=== PATIENT | male | born 1975 | race Caucasian/White ===

== ENCOUNTER → 2024-08-06 | Outpatient (CLI) | payer OTHER, SELFPAY ==
--- NOTE | 2024-08-06 12:55 | ECHOCS_ITS ---
Version 4 Reason For Study: SHORTNESS OF BREATH Procedure This was a 2D Doppler, Color Flow transthoracic echocardiogram. Contrast injection was performed. The study was technically difficult. Exam performed in department. Left Ventricle Normal LV size. Mild concentric left ventricular hypertrophy. Left ventricular systolic function is normal. The left ventricular ejection fraction is 60 %. Stage 1 diastolic dysfunction. No regional wall motion abnormalities noted. Right Ventricle Normal RV size. Normal systolic function. Atria Normal left atrium. Normal right atrium. Mitral Valve Normal mitral valve. Tricuspid Valve Normal tricuspid valve. Aortic Valve Bicuspid aortic valve. There is no aortic stenosis. Great Vessels Mildly dilated aortic root. The pulmonary artery is normal size. Pericardium/Pleural No pericardial effusion. Medication 22 gauge I.V. with prn adaptor inserted into right arm. Diluted definity 3ml given slow IV push to enhance endocardial definition. MMode/2D Measurements & Calculations LVIDd: 4.5 cm IVSd: 1.4 cm LVOT diam: 2.3 cm LVIDs: 2.5 cm LVPWd: 1.4 cm LVOT area: 4.3 cm2 RVDd: 3.9 cm FS: 45.2 % asc Aorta Diam: 3.8 cm LAV(MOD-bp): 29.2 ml LVAd ap4: 36.0 cm2 LAV(MOD-bp) Indexed: 13.3 ml/m2 LVLd ap4: 8.8 cm LAV(MOD-sp2): 29.5 ml EDV(MOD-sp4): 117.7 ml LAV(MOD-sp4): 27.1 ml EDV(sp4-el): 124.8 ml LVAs ap4: 19.6 cm2 LVLs ap4: 7.3 cm ESV(MOD-sp4): 44.3 ml ESV(sp4-el): 45.0 ml EF(MOD-sp4): 62.3 % EF(sp4-el): 64.0 % LVAd ap2: 32.8 cm2 SV(MOD-sp4): 73.4 ml SV(MOD-sp2): 58.5 ml LVLd ap2: 8.9 cm SI(MOD-sp4): 33.4 ml/m2 SI(MOD-sp2): 26.6 ml/m2 EDV(MOD-sp2): 99.1 ml EDV(sp2-el): 103.0 ml LVAs ap2: 19.9 cm2 LVLs ap2: 7.9 cm ESV(MOD-sp2): 40.7 ml ESV(sp2-el): 42.5 ml EF(MOD-sp2): 59.0 % SV(sp4-el): 79.8 ml Ao sinus diam: 4.[address] Junction: 3.6 cm LA dimension(2D): 3.4 cm LA A4 area: 13.6 cm2 RA A4 area: 10.7 cm2 TAPSE: 2.2 cm Time Measurements MV dec time: 0.18 sec Doppler Measurements & Calculations MV E max lawson: 68.4 cm/sec Lat Peak E' Lawson: 12.2 cm/sec Med Peak E' Lawson: 8.3 cm/sec MV A max lawson: 91.8 cm/sec E/E' lat: 5.6 E/E' med: 8.2 MV E/A: 0.75 MV dec slope: 385.7 cm/sec2 Ao V2 max: 122.2 cm/sec LV V1 max: 90.3 cm/sec Ao max P.0 mmHg LV V1 max P.3 mmHg Ao V2 mean: 86.6 cm/sec LV V1 mean P.0 mmHg Ao mean P.3 mmHg LV V1 mean: 69.4 cm/sec Ao V2 VTI: 22.7 cm LV V1 VTI: 18.2 cm AV (velocity ratio): 0.80 JAGRUTI(I,D): 3.5 cm2 JAGRUTI(V,D): 3.2 cm2 SV(LVOT): 78.5 ml PA V2 max: 81.1 cm/sec ECHO/Echo Complete W/ Contrast Interpretation Summary Normal LV size. Left ventricular systolic function is normal. The left ventricular ejection fraction is 60 %. Stage 1 diastolic dysfunction. Mildly dilated aortic root. Bicuspid aortic valve. There is no aortic stenosis. Contrast injection was performed. Ordering Physician: Abdirashid Robison Referring Physician: DANIEL EDEN Performed By: She Nieves RDCS
--- NOTE | 2024-08-06 13:33 | RAD_ITS ---
EXAM: XR CHEST, 2 VIEWS CLINICAL INDICATION: SOB TECHNIQUE: Frontal and lateral views of the chest. COMPARISON: No relevant prior studies available. FINDINGS: LUNGS AND PLEURAL SPACES: No significant abnormality. No consolidation or edema. No pneumothorax. No effusion. HEART: No significant abnormality. Cardiac silhouette not enlarged. MEDIASTINUM: Central airways and mediastinal contour are unremarkable. BONES/JOINTS: No significant abnormality. No acute fracture. SOFT TISSUES: No significant abnormality. RAD/Chest PA and Lateral IMPRESSION: No radiographic evidence of acute cardiopulmonary disease. Electronically Signed: Gilbert Crain DO at 22:34 EST ,
== END | disposition home or self-care (01) ==
PROVIDERS: PCP Family Medicine; Referring Provider Chiropractor; Visit Provider Chiropractor
DX: R06.02 Shortness of breath (principal); I25.9 Chronic ischemic heart disease, unspecified